=== PATIENT | male | born 1970 | race Caucasian/White ===

== ENCOUNTER 2021-01-13 16:25 | Inpatient (IN) | payer SELFPAY ==
[~2021-01-13] VITALS: Ht 185.4 cm; Wt 92.2 kg
[2021-01-13] MEDS ORDERED: MIDAZOLAM 1 MG/ML, 5ML ONE (16:28)
[2021-01-13] MEDS ORDERED: FENTANYL PF 100 MCG/2ML ONE (16:28)
[2021-01-13] MEDS ORDERED: BIVALIRUDIN 250 MG ONE (16:29)
[2021-01-13] MEDS ORDERED: LIDOCAINE 2%, 20ML ONE (16:29)
[2021-01-13] MEDS ORDERED: HEPARIN 25,000 UNITS/250ML PMX 250 ML ONE (16:33)
--- NOTE | 2021-01-13 16:33 | NUR ---
ON ARRIVAL TO [facility] FROM [facility], DR MENENDEZ AT BEDSIDE
--- NOTE | 2021-01-13 16:45 | NUR ---
AFTER EKG COMPLETED AND HOUSING SPECIALIST DISCUSSED PROCECURE, CONSENT OBTAINED AND PT TO BE TRANSFERRED TO COOPER APPRENTICE
--- NOTE | 2021-01-13 16:46 | NUR ---
TO HARBOR PILOT
--- NOTE | 2021-01-13 16:47 | NUR ---
PT WENT TO MUSIC THERAPY SPECIALIST WITH HEPARIN DRIP INFUSING AT RATE ORDERED BY CARDOLOGIST VERBAL ORDER. UPON ARRIVAL TO MUSIC THERAPY SPECIALIST, MUSIC THERAPY SPECIALIST TEAM TOOK HEPARIN DRIP DOWN
[2021-01-13] MEDS ORDERED: HEPARIN 5,000 UNITS/ML, 1ML IV ONE (17:00)
[2021-01-13] MEDS ORDERED: SODIUM CHLORIDE FLUSH 10ML SYR IVF PRN (17:00)
[2021-01-13] MEDS ORDERED: HEPARIN 25,000 UNITS/250ML PMX 250 ML IV PRN (17:00)
[2021-01-13] MEDS ORDERED: POTASSIUM CHLORIDE 20 MEQ in SODIUM CHLORIDE 0.9% 1,000 ML IV ONE (17:00)
[2021-01-13] MEDS ORDERED: HEPARIN 5,000 UNITS/ML, 1ML IV PRN (17:00)
[2021-01-13] MEDS ORDERED: SODIUM CHLORIDE FLUSH 10ML SYR IVF ONE (17:00)
[2021-01-13] MEDS ORDERED: PRASUGREL 10 MG TABLET ONE ×2 (17:17→17:20)
[2021-01-13] MEDS ORDERED: PHENYLEPHRINE 10 MG/ML ONE (17:22)
[2021-01-13] MEDS ORDERED: ATROPINE SYRINGE 0.1 MG/ML, 10ML ONE (17:22)
[2021-01-13] MEDS: SODIUM CHLORIDE 0.9% 1,000 ML IV SCH (18:00)
[2021-01-13] MEDS: PRAVASTATIN 40 MG TABLET PO SCH (20:05)
[2021-01-13] MEDS ORDERED: PRAVASTATIN 20 MG TABLET ONE (20:06)
[2021-01-14] MEDS: SODIUM CHLORIDE 0.9% 1,000 ML IV SCH ×3 (02:21→18:00)
[2021-01-14 04:48] LABS: ANION GAP 8 mmol/L (5-15); CALCIUM 8.2 mg/dL (8.5-10.1); CHLORIDE 112 mmol/L (98-107); CREATININE 0.77 mg/dL (0.7-1.3)
[2021-01-14] MEDS: METOPROLOL SUCCINATE 25 MG TAB.ER.24H PO SCH ×2 (05:01→07:45)
[2021-01-14] MEDS: ASPIRIN 81 MG TABLET EC PO SCH (05:02)
[2021-01-14] MEDS: PRASUGREL 10 MG TABLET PO SCH (07:45)
[2021-01-14 19:01] VITALS: BP 122/70
[2021-01-14] MEDS: PRAVASTATIN 40 MG TABLET PO SCH (20:08)
[2021-01-14 23:40] VITALS: BP 94/62
[2021-01-15] MEDS: SODIUM CHLORIDE 0.9% 1,000 ML IV SCH (02:00)
[2021-01-15 05:19] LABS: ANION GAP 6 mmol/L (5-15); CALCIUM 9.2 mg/dL (8.5-10.1); CHLORIDE 113 mmol/L (98-107)
[2021-01-15] MEDS: ASPIRIN 81 MG TABLET EC PO SCH (05:19)
[2021-01-15] MEDS: METOPROLOL SUCCINATE 25 MG TAB.ER.24H PO SCH (05:19)
[2021-01-15 05:22] LABS: CREATININE 1.06 mg/dL (0.7-1.3)
[2021-01-15 06:52] VITALS: BP 113/74
[2021-01-15] MEDS: PRASUGREL 10 MG TABLET PO SCH (08:10)
[2021-01-15 13:18] VITALS: BP 110/73
[2021-01-15] MEDS: PRAVASTATIN 40 MG TABLET PO SCH (20:26)
[2021-01-15 20:48] VITALS: BP 124/81
[2021-01-16 01:59] VITALS: BP 110/74
[2021-01-16 05:37] LABS: CHOL/HDL RATIO 4.5; LDL/HDL RATIO 3.1 (0.5-3.0)
[2021-01-16] MEDS: METOPROLOL SUCCINATE 25 MG TAB.ER.24H PO SCH (06:18)
[2021-01-16] MEDS: ASPIRIN 81 MG TABLET EC PO SCH (06:18)
[2021-01-16] MEDS ORDERED: LOSA25TA25 PO (06:22)
[2021-01-16] MEDS: PRASUGREL 10 MG TABLET PO SCH (07:46)
[2021-01-16 07:58] VITALS: BP 121/81
[2021-01-16] MEDS ORDERED: PRAV40TA PO (08:13)
[2021-01-16] MEDS ORDERED: METO25TA91 PO (08:13)
[2021-01-16] MEDS ORDERED: PRAS10TA4 PO (08:13)
[2021-01-16] MEDS ORDERED: ASPI81TA45 PO (08:13)
== END 2021-01-16 10:36 | disposition home or self-care (01) | DRG 247 ==
LOC: ED 16:56 → EDIP 17:02 → CCU 17:28 → 5SO 01-14 18:18 → DCLOUNGE 01-16 10:20
PROVIDERS: ADMIT Internal Medicine Cardiovascular Disease; ATTEND Internal Medicine Cardiovascular Disease
PROC: 027034Z Dilation of Coronary Artery, One Artery with Drug-eluting Intraluminal Device, Percutaneous Approach (ICD-10-PCS; principal; 2021-01-13)
PROC: 4A023N7 Measurement of Cardiac Sampling and Pressure, Left Heart, Percutaneous Approach (ICD-10-PCS; 2021-01-13)
PROC: B2111ZZ Fluoroscopy of Multiple Coronary Arteries using Low Osmolar Contrast (ICD-10-PCS; 2021-01-13)
PROC: B2151ZZ Fluoroscopy of Left Heart using Low Osmolar Contrast (ICD-10-PCS; 2021-01-13)
DX: I21.19 ST elevation (STEMI) myocardial infarction involving other coronary artery of inferior wall (principal); I47.2 Ventricular tachycardia; Z20.822 Contact with and (suspected) exposure to COVID-19; E78.5 Hyperlipidemia, unspecified; I10 Essential (primary) hypertension; I25.10 Atherosclerotic heart disease of native coronary artery without angina pectoris; Z87.891 Personal history of nicotine dependence; Z79.899 Other long term (current) drug therapy
CPT/HCPCS: 36415; 93458; 99285; J3490; 80048; 80061; 83735; 84484; 87081; 87635; 93005; 93306; 93356; 99156; C1760; C1769; C1894; G0378; J0461; J0583; J2250; J3010; C1725; C1874; C1887; J2370; J7030; Q9967

== ENCOUNTER → 2021-03-26 | Outpatient (CLI) | payer BC, OTHER ==
[~2021-03-26] MED LIST: ASPI81TA45 PO; LOSA25TA25 PO; METO25TA91 PO; PRAS10TA4 PO; PRAV40TA PO
== END | disposition home or self-care (01) ==
LOC: CFH 10:15
PROVIDERS: ATTEND Internal Medicine Cardiovascular Disease
DX: I08.8 Other rheumatic multiple valve diseases (principal); I22.1 Subsequent ST elevation (STEMI) myocardial infarction of inferior wall
CPT/HCPCS: 93306; 93356